=== PATIENT | male | born 1975 | race Caucasian/White ===

== ENCOUNTER 2018-04-14 21:56 | Emergency (ER) | payer MEDICAID ==
[2018-04-14 22:39] VITALS: BP 139/93
--- NOTE | 2018-04-15 07:16 | EKG REPORT ---
SEVERITY:- NORMAL ECG - SINUS RHYTHM : Confirmed by: Lamberto Palmer MD 15-Apr-2018 07:16:00
== END 2018-04-14 23:55 | disposition left against medical advice (07) ==
LOC: ER 21:56
DX: Z53.21 Procedure and treatment not carried out due to patient leaving prior to being seen by health care provider (principal)
CPT/HCPCS: 93005; 93010

== ENCOUNTER 2018-05-21 13:37 | Emergency (ER) | payer SELFPAY ==
[2018-05-21 14:24] VITALS: BP 128/90
--- NOTE | 2018-05-21 16:44 | ER Document Report ---
ED Medical Screen (RME) - General Chief Complaint: Foot Pain Stated Complaint: HEEL PAIN Time Seen by Provider: 05/21/18 16:38 Mode of Arrival: Wheelchair Information source: Patient Notes: Patient is a 42-year-old male who presents with chief complaint of right heel pain. Patient denies any injury, denies any history of same. Patient reports he does have a history of gout however the gout usually occurs in his ankle and this feels different. Exam: Mild swelling noted to the posterior aspect of the right heel. I have greeted and performed a rapid initial assessment of this patient. A comprehensive ED assessment and evaluation of the patient, analysis of test results and completion of the medical decision making process will be conducted by additional ED providers. Dictation of this chart was performed using voice recognition software; therefore, there may be some unintended grammatical errors. TRAVEL OUTSIDE OF THE [place] IN LAST 30 DAYS: No - Related Data Allergies/Adverse Reactions: Penicillins Allergy (Unknown, Verified 05/21/18 13:38) Past Medical History - Social History Chew tobacco use (# tins/day): No Frequency of alcohol use: Occasional Drug Abuse: None - Past Medical History Cardiac Medical History: Reports: Hx Hypertension Renal/ Medical History: Denies: Hx Peritoneal Dialysis GI Medical History: Reports: Hx Gastroesophageal Reflux Disease Musculoskeltal Medical History: Reports Hx Gout Psychiatric Medical History: Reports: Hx Anxiety Past Surgical History: Reports: Hx Adenoidectomy, Hx Tonsillectomy - Immunizations Hx Diphtheria, Pertussis, Tetanus Vaccination: Yes Physical Exam - Vital signs Vitals: Temp Pulse Resp BP Pulse Ox 97.9 F 78 16 128/90 H 98 05/21/18 14:20 05/21/18 14:20 05/21/18 14:20 05/21/18 14:20 05/21/18 14:20 Course - Vital Signs Vital signs: Temp Pulse Resp BP Pulse Ox 97.9 F 78 16 128/90 H 98 05/21/18 14:20 05/21/18 14:20 05/21/18 14:20 05/21/18 14:20 05/21/18 14:20
[2018-05-21] MEDS ORDERED: PREDNISONE 20 MG TABLET PO ONE (17:22)
[2018-05-21] MEDS ORDERED: LIDOCAINE 5% (700 MG) TRANSDERMAL ADH..PATCH TP ONE (17:22)
--- NOTE | 2018-05-21 17:22 | RADIOLOGY REPORT (SQ) ---
EXAM DESCRIPTION: FOOT RIGHT COMPLETE COMPLETED DATE/TIME: 05/21/2018 5:01 pm REASON FOR STUDY: foot pain near heel, no injury COMPARISON: 07/03/2016. NUMBER OF VIEWS: Three views. TECHNIQUE: AP, lateral and oblique radiographic images acquired of the right foot. LIMITATIONS: None. FINDINGS: MINERALIZATION: Normal. BONES: No acute fracture or dislocation. Calcaneal spurring at the attachment of the Achilles tendon . No worrisome bone lesions. JOINTS: No effusions. SOFT TISSUES: No soft tissue swelling. No foreign body. OTHER: No other significant finding. IMPRESSION: CHRONIC CHANGES WITH CALCANEAL SPURRING AT THE ATTACHMENT OF THE ACHILLES TENDON. NO AC [place] FINDINGS. TECHNICAL DOCUMENTATION: JOB ID: [id number] [employer]- All Rights Reserved Reading location - IP/workstation name: [email or web address]
--- NOTE | 2018-05-21 17:25 | ER Document Report ---
HPI - HPI Patient complains to provider of: Right heel pain Onset: Yesterday Onset/Duration: Gradual Quality of pain: Achy Pain Level: 5 Context: Patient presents complaining of right heel pain with swelling. Patient denies any injury. Patient denies any fever. Associated Symptoms: denies: Fever Exacerbated by: Standing, Movement, Walking Relieved by: Denies Similar symptoms previously: Yes Recently seen / treated by doctor: No - ROS ROS below otherwise negative: Yes Systems Reviewed and Negative: Yes All other systems reviewed and negative - CONSTITUTIONAL Constitutional: DENIES: Fever - MUSCULOSKELETAL Musculoskeletal: REPORTS: Extremity pain, Swelling - DERM Skin Color: Erythema Skin Problems: None Past Medical History - General Information source: Patient - Social History Smoking Status: Never Smoker Chew tobacco use (# tins/day): No Frequency of alcohol use: Occasional Drug Abuse: None Occupation: None Lives with: Family Family History: Reviewed & Not Pertinent Patient has suicidal ideation: No Patient has homicidal ideation: No - Past Medical History Cardiac Medical History: Reports: Hx Hypertension Renal/ Medical History: Denies: Hx Peritoneal Dialysis GI Medical History: Reports: Hx Gastroesophageal Reflux Disease Musculoskeletal Medical History: Reports Hx Gout Psychiatric Medical History: Reports: Hx Anxiety Past Surgical History: Reports: Hx Adenoidectomy, Hx Tonsillectomy - Immunizations Hx Diphtheria, Pertussis, Tetanus Vaccination: Yes Vertical Provider Document - CONSTITUTIONAL Agree With Documented VS: Yes Exam Limitations: No Limitations General Appearance: WD/WN, No Apparent Distress - INFECTION CONTROL TRAVEL OUTSIDE OF THE [place] IN LAST 30 DAYS: No - HEENT HEENT: Atraumatic, Normocephalic - NECK Neck: Normal Inspection - RESPIRATORY Respiratory: No Respiratory Distress - CARDIOVASCULAR Pulses: Normal: Dorsalis pedis - MUSCULOSKELETAL/EXTREMETIES Musculoskeletal/Extremeties: MAEW, FROM, Tender - Right foot tenderness to posterior aspect of right calcaneus, overlying area erythematous and tender to palpation - NEURO Level of Consciousness: Awake, Alert, Appropriate Motor/Sensory: No Motor Deficit - DERM Integumentary: Warm, Dry Course - Re-evaluation Re-evalutation: 05/21/18 17:23 Reviewed patient's x-ray, patient does have a history of calcaneal spur in the area of his tenderness today. No concern for cellulitis, no overlying skin trauma. Patient encouraged to wear a heel insert and follow-up with podiatry. Patient advised to avoid any shoes that rub and irritate this area. - Vital Signs Vital signs: Temp Pulse Resp BP Pulse Ox 97.9 F 78 16 128/90 H 98 05/21/18 14:20 05/21/18 14:20 05/21/18 14:20 05/21/18 14:20 05/21/18 14:20 - Diagnostic Test Radiology reviewed: Pending, Image reviewed Discharge - Discharge Clinical Impression: Pain of right heel, Calcaneal spur, right Condition: Stable Disposition: HOME, SELF-CARE Instructions: Steroid Medication Additional Instructions: Return immediately for any new or worsening symptoms Followup with your primary care provider, call tomorrow to make a followup appointment Follow-up with podiatry for further evaluation Avoid wearing shoes that rub on this area. Prescriptions: Prednisone [Deltasone 20 mg Tablet] 3 tab PO DAILY 4 Days tablet Referrals: [facility] [Provider Group] - Follow up as needed DMITRIY PISANO DPM [ACTIVE STAFF] - Follow up as needed JACQUI MELTON DPM [ACTIVE STAFF] - Follow up as needed
== END 2018-05-21 17:30 | disposition home or self-care (01) ==
LOC: ER 13:37
DX: M77.31 Calcaneal spur, right foot (principal); I10 Essential (primary) hypertension
CPT/HCPCS: 99283; 73630; J7512

== ENCOUNTER → 2018-09-23 | Outpatient (CLI) | payer OTHER ==
[2018-09-23 12:25] LABS: ABSOLUTE LYMPHOCYTES (AUTO) 2.8 10^3/uL (0.5-4.7); ABSOLUTE MONOCYTES (AUTO) 0.6 10^3/uL (0.1-1.4); ABSOLUTE NEUT (AUTO) 6.9 10^3/uL (1.7-8.2); BASOPHILS % (AUTO) 0.4 % (0-2); EOSINOPHILS % (AUTO) 0.2 % (0-6); HEMATOCRIT 47.8 % (37.9-51.0); HEMOGLOBIN 16.6 g/dL (13.5-17.0); LYMPHOCYTES % (AUTO) 27.2 % (13-45); MEAN CORPUSCULAR HEMOGLOBIN 28.4 pg (27.0-33.4); MEAN CORPUSCULAR HGB CONC 34.8 g/dL (32.0-36.0); MEAN CORPUSCULAR VOLUME 82 fl (80-97); PLATELET COUNT 228 10^3/uL (150-450); RED BLOOD COUNT 5.86 10^6/uL (4.35-5.55); SEGMENTED NEUTROPHILS % (AUTO) 66.2 % (42-78); TOTAL CELLS COUNTED % (AUTO) 100 %; WHITE BLOOD COUNT 10.4 10^3/uL (4.0-10.5)
[2018-09-23 12:34] LABS: ALANINE AMINOTRANSFERASE 33 U/L (21-72); ALBUMIN 4.7 g/dL (3.5-5.0); ALKALINE PHOSPHATASE 106 U/L (38-126); ANION GAP 11 (5-19); ASPARTATE AMINO TRANSFERASE 24 U/L (17-59); BILIRUBIN,DIRECT 0.3 mg/dL (0.0-0.4); BILIRUBIN,TOTAL 0.7 mg/dL (0.2-1.3); BLOOD UREA NITROGEN 13 mg/dL (7-20); CALCIUM 10.1 mg/dL (8.4-10.2); CARBON DIOXIDE 26 mmol/L (22-30); CHLORIDE 106 mmol/L (98-107); CHOLESTEROL 231.31 mg/dL (0-200); GLUCOSE 120 mg/dL (75-110); POTASSIUM 4.5 mmol/L (3.6-5.0); SODIUM 142.6 mmol/L (137-145); TOTAL PROTEIN 7.5 g/dL (6.3-8.2); TRIGLYCERIDES 421 mg/dL (<150)
[2018-09-23 12:45] LABS: DIRECT LDL 118 mg/dL (<100)
== END ==
LOC: CCC 11:16
DX: Z13.9 Encounter for screening, unspecified (principal)
CPT/HCPCS: 36415; 80053; 80061; 83036; 84443; 85025

== ENCOUNTER 2018-11-05 13:04 | Emergency (ER) | payer SELFPAY ==
[2018-11-05 13:11] VITALS: BP 123/92
[2018-11-05] MEDS ORDERED: KETOROLAC TROMETHAMINE INJ/PF 30 MG/1 ML SDV IM ONE (13:26)
--- NOTE | 2018-11-05 13:27 | ER Document Report ---
HPI - HPI Time Seen by Provider: 11/05/18 13:16 Pain Level: 4 Notes: Patient is a 42-year-old male who presents the emergency department complaining of re-exacerbation of his right heel pain/calcaneal spur. Patient states that he was here several months ago for the same issue. Patient states that he has a known spur in this area and does have exacerbations from time to time. Patient states that he currently does not have insurance so he has not been able to see a specialist for it. Patient states that the pain has not changed from how it was previous. He has pain with weightbearing and ambulation and is improved with rest. He has not noticed any bruising, redness, or swelling. No other concerns or complaints. Patient is supposed to start a job tomorrow which is why he presented today. Denies any headache, fever, URI, sore throat, chest pain, palpitations, syncope, cough, shortness of breath, wheeze, dyspnea, abdominal pain, nausea/vomiting/diarrhea, urinary retention, dysuria, hematuria, loss of control of bowel or bladder, numbness/tingling, saddle anesthesia, muscle paralysis/weakness, or rash. - ROS Systems Reviewed and Negative: Yes All other systems reviewed and negative Past Medical History - Social History Smoking Status: Never Smoker Family History: Reviewed & Not Pertinent - Past Medical History Cardiac Medical History: Reports: Hx Hypertension Renal/ Medical History: Denies: Hx Peritoneal Dialysis GI Medical History: Reports: Hx Gastroesophageal Reflux Disease Musculoskeletal Medical History: Reports Hx Gout Psychiatric Medical History: Reports: Hx Anxiety Past Surgical History: Reports: Hx Adenoidectomy, Hx Tonsillectomy - Immunizations Hx Diphtheria, Pertussis, Tetanus Vaccination: Yes Vertical Provider Document - CONSTITUTIONAL Agree With Documented VS: Yes Notes: PHYSICAL EXAMINATION: GENERAL: Well-appearing, well-nourished and in no acute distress. LUNGS: Breath sounds clear to auscultation bilaterally and equal. No wheezes rales or rhonchi. HEART: Regular rate and rhythm without murmurs, rubs, gallops. Musculoskeletal: Rt foot/ankle: There is no evidence of erythema, warmth, swelling, deformity, or ecchymosis. There is tenderness to the posterior heel/distal Achilles where the calcaneal spur is noted to be (reviewed previous x-ray report). FROM to passive/active. Strength 5+/5. N/V intact distal. No bony tenderness of the ankle/foot otherwise. Achilles intact. Extremities: No cyanosis, clubbing, or edema b/l. Peripheral pulses 2+. Capillary refill less than 3 seconds. NEUROLOGICAL: Normal speech, normal gait. Normal sensory, motor exams PSYCH: Normal mood, normal affect. SKIN: Warm, Dry, normal turgor, no rashes or lesions noted. - INFECTION CONTROL TRAVEL OUTSIDE OF THE [place] IN LAST 30 DAYS: No Course - Re-evaluation Re-evalutation: 11/05/18 13:25 Patient is an afebrile, well-hydrated, 42-year-old male who presents to the ED with rt foot pain suspect secondary to the calcaneal spur near his Achilles. Vitals are acceptable without any significant tachycardia, tachypnea, or hypoxia. PE is otherwise unremarkable for any neurovascular compromise, obvious tendon/ligament rupture, obvious fracture/dislocation, septic joint. Auto ankle rules negative. No labs or imaging warranted. Patient is nontoxic-appearing. Patient is able to ambulate and weight-bear. Conservative measures otherwise for symptoms. Recheck with your PCM in 3-5 days. Patient is requesting prednisone as this helped him in the past. Consider consult podiat ry/orthopedics. Return to the ED with any worsening/concerning symptoms otherwise as reviewed in discharge. Patient is in agreement. - Vital Signs Vital signs: Temp Pulse Resp BP Pulse Ox 98.2 F 72 16 123/92 H 98 11/05/18 13:09 11/05/18 13:09 11/05/18 13:09 11/05/18 13:09 11/05/18 13:09 Discharge - Discharge Clinical Impression: Pain of right heel Condition: Stable Disposition: HOME, SELF-CARE Instructions: Plantar Fasciitis or Heel Spur ([facility]) Additional Instructions: Rest, Ice, Compression, Elevation Tylenol/ibuprofen as needed Light stretches daily Strength exercises as able Moist heat and massage may help F/u with your PCP in 3-5 days for a recheck Consider consult(s) with podiatry/orthopedics for ongoing/worsening symptoms Return to the ED with any worsening symptoms and/or development of fever, headache, chest pain, palpitations, syncope, shortness of breath, trouble breathing, abdominal pain, n/v/d, muscle weakness/paralysis, numbness/tingling, swelling, redness, or other worsening symptoms that are concerning to you. Prescriptions: Prednisone [Deltasone 20 mg Tablet] 3 tab PO DAILY 3 Days tablet Referrals: [facility] [NO LOCAL MD] - Follow up as needed DMITRIY PISANO DPM [ACTIVE STAFF] - Follow up as needed [facility] [Provider Group] - Follow up as needed
== END 2018-11-05 13:57 | disposition home or self-care (01) ==
LOC: ER 13:04
DX: M77.31 Calcaneal spur, right foot (principal); M79.671 Pain in right foot; I10 Essential (primary) hypertension
CPT/HCPCS: 99283; 96372; J1885

== ENCOUNTER 2019-04-11 17:44 | Emergency (ER) | payer OTHER ==
[2019-04-11] MEDS ORDERED: ONDANSETRON HCL INJ/PF 4 MG/2 ML SDV IV ONE (18:50)
[2019-04-11] MEDS ORDERED: OXYCODONE-ACETAMINOPHEN 5-325 MG TABLET PO ONE (18:50)
[2019-04-11] MEDS ORDERED: NORMAL SALINE 1000 ML 1,000 ML IV ONE (18:51)
--- NOTE | 2019-04-11 18:53 | ER Document Report ---
ED Medical Screen (RME) - General Chief Complaint: Abdominal Pain Stated Complaint: LOWER ABDOMINAL PAIN Time Seen by Provider: 04/11/19 18:44 Notes: Patient is a 43-year-old male with a history of hypertension and IBS who presents to the emergency department with a chief complaint of lower abdominal pain. Patient reports having lower abdominal pain for 3 days that has been constant and feels like a tearing. Patient states the pain is worse to the left lower quadrant. Patient denies urinary symptoms. Patient denies fever but does report feeling achy all over and not well. Patient reports a normal appetite. Patient denies nausea, vomiting or diarrhea. Patient had surgery to his right Achilles tendon last at [facility]. Patient states he thought with the pain medication he was constipated so he has taken 2 Ex-Lax. Patient did have a bowel movement today and denies blood or dark stools. Patient states this is a type of pain he has never experienced. TRAVEL OUTSIDE OF THE [place] IN LAST 30 DAYS: No - Related Data Allergies/Adverse Reactions: Penicillins Allergy (Unknown, Verified 05/21/18 13:38) Past Medical History - Past Medical History Cardiac Medical History: Reports: Hx Hypertension Renal/ Medical History: Denies: Hx Peritoneal Dialysis GI Medical History: Reports: Hx Gastroesophageal Reflux Disease Musculoskeltal Medical History: Reports Hx Gout Psychiatric Medical History: Reports: Hx Anxiety Past Surgical History: Reports: Hx Adenoidectomy, Hx Tonsillectomy - Immunizations Hx Diphtheria, Pertussis, Tetanus Vaccination: Yes Physical Exam - Vital signs Vitals: Temp Pulse Resp BP Pulse Ox 98.2 F 69 18 109/81 96 04/11/19 17:53 04/11/19 17:53 04/11/19 17:53 04/11/19 17:53 04/11/19 17:53 Interpretation: Normal - Abdominal Inspection: Normal Distension: No distension Bowel sounds: Normal Tenderness: Tender - Generalized lower abdominal tenderness, worse to LLQ Organomegaly: No organomegaly Course - Re-evaluation Re-evalutation: 04/11/19 18:53 We will obtain basic labs and a urinalysis. Patient will need a thorough abdominal exam once laying on a stretcher. I have greeted and performed a rapid initial assessment of this patient. A comprehensive ED assessment and evaluation of the patient, analysis of test results and completion of the medical decision making process will be conducted by additional ED providers. - Vital Signs Vital signs: Temp Pulse Resp BP Pulse Ox 98.2 F 69 18 109/81 96 04/11/19 17:53 04/11/19 17:53 04/11/19 17:53 04/11/19 17:53 04/11/19 17:53
[2019-04-11 20:30] LABS: ABSOLUTE MONOCYTES (AUTO) 0.8 10^3/uL (0.1-1.4); ABSOLUTE NEUT (AUTO) 8.6 10^3/uL (1.7-8.2); BASOPHILS % (AUTO) 0.3 % (0-2); EOSINOPHILS % (AUTO) 0.2 % (0-6); HEMATOCRIT 47.4 % (37.9-51.0); HEMOGLOBIN 16.3 g/dL (13.5-17.0); LYMPHOCYTES % (AUTO) 29.6 % (13-45); MEAN CORPUSCULAR HGB CONC 34.3 g/dL (32.0-36.0); MEAN CORPUSCULAR VOLUME 84 fl (80-97); MONOCYTES % (AUTO) 5.8 % (3-13); PLATELET COUNT 301 10^3/uL (150-450); RED BLOOD COUNT 5.61 10^6/uL (4.35-5.55); RED CELL DISTRIBUTION WIDTH 14.7 % (11.5-14.0); SEGMENTED NEUTROPHILS % (AUTO) 64.1 % (42-78); TOTAL CELLS COUNTED % (AUTO) 100 %; WHITE BLOOD COUNT 13.4 10^3/uL (4.0-10.5)
[2019-04-11 20:49] LABS: ALBUMIN 4.7 g/dL (3.5-5.0); ALKALINE PHOSPHATASE 118 U/L (38-126); ANION GAP 12 (5-19); ASPARTATE AMINO TRANSFERASE 34 U/L (17-59); BILIRUBIN,DIRECT 0.3 mg/dL (0.0-0.4); BLOOD UREA NITROGEN 12 mg/dL (7-20); CALCIUM 9.9 mg/dL (8.4-10.2); CARBON DIOXIDE 26 mmol/L (22-30); CHLORIDE 99 mmol/L (98-107); GLUCOSE 96 mg/dL (75-110); POTASSIUM 4.7 mmol/L (3.6-5.0); TOTAL PROTEIN 7.7 g/dL (6.3-8.2)
[2019-04-11 20:51] LABS: APPEARANCE,URINE SLIGHTLY-CLOUDY; BILIRUBIN,URINE NEGATIVE (NEGATIVE); COLOR,URINE YELLOW; GLUCOSE, URINE NEGATIVE (NEGATIVE); KETONES,URINE NEGATIVE (NEGATIVE); LEUKOCYTE ESTERASE,URINE NEGATIVE (NEGATIVE); NITRITE,URINE NEGATIVE (NEGATIVE); PROTEIN,URINE NEGATIVE (NEGATIVE); URINE SPECIFIC GRAVITY 1.023; UROBILINOGEN,URINE NEGATIVE mg/dL (<2.0)
[2019-04-11] MEDS ORDERED: METRONIDAZOLE 500 MG TABLET PO ONE (21:32)
[2019-04-11] MEDS ORDERED: CEPHALEXIN 500 MG CAPSULE PO ONE (21:33)
[2019-04-11 21:56] VITALS: BP 103/69
--- NOTE | 2019-04-11 22:17 | ER Document Report ---
ED General - General Chief Complaint: Abdominal Pain Stated Complaint: LOWER ABDOMINAL PAIN Time Seen by Provider: 04/11/19 18:44 Primary Care Provider: [facility] [Primary Care Provider] - Follow up as needed TRAVEL OUTSIDE OF THE [place] IN LAST 30 DAYS: No - HPI Notes: 43-year-old male presents with 2 to 3 days gradual onset left lower quadrant abdominal pain. Patient describes crampy throbbing pain, waxing and waning, more constant now. No personal history of diverticulitis. No fever, chills or sweats. No vomiting, no nausea. Moderate intensity, gradual onset, nonradiating. No other modifying factors, no other associated symptoms, no other provocative or palliative factors. - Related Data Allergies/Adverse Reactions: Penicillins Allergy (Unknown, Verified 05/21/18 13:38) Past Medical History - Social History Smoking Status: Former Smoker Chew tobacco use (# tins/day): No Drug Abuse: None Family History: Reviewed & Not Pertinent Patient has suicidal ideation: No Patient has homicidal ideation: No - Medical History Medical History: Other - Includes recent Achilles surgery - Past Medical History Cardiac Medical History: Reports: Hx Hypertension Renal/ Medical History: Denies: Hx Peritoneal Dialysis GI Medical History: Reports: Hx Gastroesophageal Reflux Disease Musculoskeletal Medical History: Reports Hx Gout Psychiatric Medical History: Reports: Hx Anxiety Past Surgical History: Reports: Hx Adenoidectomy, Hx Tonsillectomy - Immunizations Hx Diphtheria, Pertussis, Tetanus Vaccination: Yes Review of Systems - Review of Systems Notes: Review of systems as in the history of present illness, otherwise negative x 10 systems. Physical Exam - Vital signs Vitals: Temp Pulse Resp BP Pulse Ox 98.2 F 69 18 109/81 96 04/11/19 17:53 04/11/19 17:53 04/11/19 17:53 04/11/19 17:53 04/11/19 17:53 - Notes Notes: General: Well developed . HEENT: Normocephalic, atraumatic. Pupils equal round reactive to light. No JVD. Chest: No trauma. Respiratory: Good air exchange, normal excursion. Cardiac: Regular rhythm. No murmurs or gallops. Abdomen: Soft, benign. Mild left lower quadrant tenderness. No guarding rigidity rebound Back: No asymmetry or gross abnormality. Motor: Grossly normal power and tone. Neurologic: Alert, nonfocal. Cranial nerves II-12 are intact. Sensation intact. Vascular: Well perfused. Normal peripheral pulses. Skin: No petechiae or purpura. Course - Re-evaluation Re-evalutation: 04/11/19 22:17 43-year-old male presents the after mentioned symptoms. Certainly suspicious for diverticulitis. Consider underlying functional abdominal pain, viral illness or other etiology. No history of trauma. Labs reviewed, CBC shows mild leukocytosis, chemistry LFTs lipase unremarkable. Patient received oral antibiotics. Clinically have a high suspicion for diverticulitis, low suspicion for complication such as perforation. Serial exam showed benign abdomen. Plan is to proceed with empiric therapy, outpatient treatment, follow-up with primary care physician. She develop any fever, worsening symptoms return to mediately. - Vital Signs Vital signs: Temp Pulse Resp BP Pulse Ox 97.6 F 61 16 103/69 97 04/11/19 21:54 04/11/19 21:54 04/11/19 21:54 04/11/19 21:54 04/11/19 21:54 - Laboratory Result Diagrams: 04/11/19 20:12 04/11/19 20:12 Laboratory results interpreted by me: 04/11/19 04/11/19 20:12 20:12 WBC 13.4 H RBC 5.61 H RDW 14.7 H Absolute Neutrophils 8.6 H Sodium 136.8 L Discharge - Discharge Clinical Impression: Diverticulitis Condition: Stable Disposition: HOME, SELF-CARE Instructions: Diverticulitis ([facility]) Prescriptions: Cephalexin Monohydrate [Keflex 500 mg Capsule] 500 mg PO Q6H 7 Days #28 capsule Metronidazole [Flagyl 500 mg Tablet] 500 mg PO Q6H #28 tablet Tramadol HCl [Ultram 50 mg Tablet] 50 mg PO Q6 PRN #12 tablet PRN Reason: Referrals: [facility] [Primary Care Provider] - Follow up as needed
== END 2019-04-11 23:10 | disposition home or self-care (01) ==
LOC: ER 17:44
DX: K57.92 Diverticulitis of intestine, part unspecified, without perforation or abscess without bleeding (principal); R10.30 Lower abdominal pain, unspecified; I10 Essential (primary) hypertension; Z88.0 Allergy status to penicillin
CPT/HCPCS: 36415; 85025; 80053; 81001; J2405; J7030; 96361; 96374; 99284

== ENCOUNTER → 2019-09-12 | Outpatient (CLI) | payer OTHER | LOC: LAB 16:32 | DX: Z00.00 Encounter for general adult medical examination without abnormal findings (principal) | CPT/HCPCS: 36415; 87086; 87088; 87186 ==